=== PATIENT | female | born 1970 | race Caucasian/White ===

== ENCOUNTER 2022-07-23 16:11 | Emergency (ER) | payer SELFPAY ==
[2022-07-23] MEDS ORDERED: SUMAtriptan Succinate 6 MG/0.5 ML VIAL ONE (17:22)
== END 2022-07-23 17:28 | disposition left against medical advice (07) ==
LOC: ERS 16:11
DX: Z53.29 Procedure and treatment not carried out because of patient's decision for other reasons (principal)
CPT/HCPCS: J3030

== ENCOUNTER 2022-09-05 13:12 | Inpatient (IN) | payer OTHER, SELFPAY ==
[~2022-09-05 13:12] MED LIST: Iopamidol-370 76% 500 ML MDV (1 ML CHARGE) ONE
[2022-09-05] MEDS ORDERED: Refresh Lacri-lube Opth Oint 7 GM TUBE FS SCH (19:15)
[2022-09-05] MEDS ORDERED: SODIUM CHLORIDE 0.9% IVPB SCH (19:30)
[2022-09-05] MEDS ORDERED: HYDROCORTISONE SOD SUCC IVPB SCH (19:30)
[2022-09-05 20:35] LABS: Hemoglobin 7.4 g/dL (12.0-16.0); Mean Corpuscular Hemoglobin 29.4 pg (27.0-31.0); Mean Corpuscular Volume 79.4 fl (78.0-98.0); Mean Platelet Volume 11.1 fL (7.4-10.4); RBC Distribution Width 18.5 % (11.5-14.5); Red Blood Cell (RBC) Count 2.52 mill/uL (4.20-5.40); White Blood Cell (WBC) Count 8.9 10x3/uL (4.8-10.8)
[2022-09-05 20:37] LABS: Delete Auto Diff?? YES; Manual Diff?? YES; Platelet Count 55 10x3/uL (130-400)
[2022-09-05 20:44] LABS: Hemoglobin A1c 5.7 % (4.0-6.0)
[2022-09-05 20:47] LABS: INR-International Normal Ratio 1.2; Prothrombin Time 15.6 sec (12.0-14.7)
[2022-09-05 20:48] LABS: PTT 34.8 sec (22.9-36.1)
[2022-09-05] MEDS: Phenylephrine 40 MG/NS 250 ML 40 MG in Premix Bag 1 BAG IVPB SCH (20:48)
[2022-09-05 20:54] LABS: ALT (SGPT) 90 U/L (8-55); AST (SGOT) 193 U/L (5-34); Albumin 2.3 g/dL (3.5-5.0); Alkaline Phosphatase 49 U/L (40-110); Anion Gap 10 mmol/L (10-20); BUN (Urea Nitrogen) 24 mg/dL (9.8-20.1); Calc. Creatinine Clearance 0 mL/min (70-130); Calcium 7.9 mg/dL (7.8-10.44); Carbon Dioxide 25 mmol/L (22-29); Chloride 111 mmol/L (98-107); Estimated GFR 34; Globulin 1.6 g/dL (2.4-3.5); Glucose 124 mg/dL (70-105); Magnesium 1.2 mg/dL (1.6-2.6); Phosphorus 3.2 mg/dL (2.3-4.7); Protein, Total 3.9 g/dL (6.0-8.3); Sodium 143 mmol/L (136-145)
[2022-09-05 21:07] LABS: Bilirubin Negative (Negative); Blood, Urine 2+ (Negative); Clarity Clear (Clear); Glucose, Urine (Dipstick) Normal (Negative); Ketone, Urine Negative (Negative); Leukocyte Negative Leu/uL (Negative); Nitrite Negative (Negative); Protein, Urine (Dipstick) 20 mg/dL (Neg-Trace); RBC/HPF 0-3 HPF (0-3); Renal Epithelial 0-3 HPF (None Seen); Specific Gravity, Urine 1.026 (1.002-1.036); Squamous Epithelial 0-3 HPF (0-3); Urobilinogen Normal mg/dL (Less than 2)
[2022-09-05 21:09] LABS: Bacteria/HPF 1+ HPF (None Seen)
[2022-09-05 21:13] LABS: Band 43 % (5-11); CellaVision Operator ID LAB.CLH1; Eosinophils 3 % (0-10); Hypochromia SLIGHT = 6-15 cells HPF (0-5); Large Platelets 6.7 % (0-5); Lymphocytes 16 % (21-51); Neutrophil 37 % (42-75); Nucleated RBC (Manual Ct) 1 % (0); Platelet Adequacy Comment Platelets Decreased; Polychromasia SLIGHT = 2-3 cells HPF (0-2); Reactive Lymphocytes 1 % (0-10); Target Cells SLIGHT = 2-5 cells HPF (0-1); Total Cell Count 104
[2022-09-05] MEDS ORDERED: Magnesium 2 GM/50 ML(in water) 2 GM in Premix Bag 1 BAG IVPB SCH (23:00)
[2022-09-05] MEDS ORDERED: Potassium Chloride 40 MEQ in Premix Bag 1 BAG IVPB SCH (23:00)
[2022-09-05] MEDS ORDERED: Albumin 25% 25 GM/100 ML BOT IVPB SCH (23:30)
[2022-09-06] MEDS ORDERED: Electrolyte Replacement Protocol FS PRN (00:30)
[2022-09-06 00:36] LABS: Actual Bicarbonate (HCO3a) 27.5 mEq/L (22-28); Base Excess (BEa) 3.4 mEq/L (-2.0 to +3.0); CO2 Tension 39.5 mmHg (35.0-45.0); Calcium, Ionized (arterial) 1.13 mmol/L (1.12-1.30); Carboxyhemoglobin (COHb) 0.3 gm% (0.0-3.0); Hematocrit-ABG 28 % (36.0-47.0); Hemoglobin (Hb) 9.4 g/dL (12.0-16.0); O2 Tension (PaO2), arterial 138.7 mmHg (80.0-100.0)
[2022-09-06 00:59] LABS: Puncture Site Arterial Line
[2022-09-06] MEDS ORDERED: Magnesium Sulfate In Water 4 GM in Premix Bag 1 BAG IVPB SCH (01:00)
[2022-09-06 01:02] LABS: ALV-art Gradient 524.925 mmHg (0-20)
[2022-09-06] MEDS: Ipratropium/Albuterol 3 ML NEB NEB SCH ×6 (03:12→22:21)
[2022-09-06] MEDS ORDERED: Hydrocortisone Sod Succ/PF 100 mg/2 ml Vial IVP SCH ×2 (04:00→12:00)
[2022-09-06] MEDS ORDERED: Furosemide 40 MG/4 ML VIAL SLOW IVP SCH (04:30)
[2022-09-06 06:24] VITALS: BMI 36.1
[2022-09-06] MEDS ORDERED: Albumin 25% 25 GM/100 ML BOT IVPB SCH (06:30)
[2022-09-06 06:45] LABS: Hemoglobin 7.6 g/dL (12.0-16.0); Mean Corpuscular Hemoglobin 29.6 pg (27.0-31.0); RBC Distribution Width 19.3 % (11.5-14.5); Red Blood Cell (RBC) Count 2.57 mill/uL (4.20-5.40); White Blood Cell (WBC) Count 15.8 10x3/uL (4.8-10.8)
[2022-09-06 06:51] LABS: Platelet Count 54 10x3/uL (130-400)
[2022-09-06 06:53] LABS: Delete Auto Diff?? YES; Manual Diff?? YES
[2022-09-06 06:54] LABS: Mean Corpuscular Volume 82.1 fl (78.0-98.0)
[2022-09-06 07:05] LABS: Lactic Acid 2.8 mmol/L (0.5-2.2)
[2022-09-06 07:08] LABS: INR-International Normal Ratio 1.1; Prothrombin Time 14.7 sec (12.0-14.7)
[2022-09-06 07:09] LABS: PTT 32.5 sec (22.9-36.1)
[2022-09-06 07:18] LABS: Bacteria/HPF 2+ HPF (None Seen); Bilirubin Negative (Negative); Blood, Urine 2+ (Negative); Clarity Clear (Clear); Glucose, Urine (Dipstick) Normal (Negative); Ketone, Urine Negative (Negative); Leukocyte Negative Leu/uL (Negative); Nitrite Negative (Negative); Protein, Urine (Dipstick) Negative (Neg-Trace); RBC/HPF 0-3 HPF (0-3); Specific Gravity, Urine 1.006 (1.002-1.036); Squamous Epithelial 0-3 HPF (0-3); Urobilinogen Normal mg/dL (Less than 2)
[2022-09-06 07:20] LABS: ALT (SGPT) 100 U/L (8-55); AST (SGOT) 193 U/L (5-34); Albumin 3.3 g/dL (3.5-5.0); Alkaline Phosphatase 58 U/L (40-110); Anion Gap 14 mmol/L (10-20); BUN (Urea Nitrogen) 24 mg/dL (9.8-20.1); Bilirubin, Total 1.3 mg/dL (0.2-1.2); Calc. Creatinine Clearance 60 mL/min (70-130); Calcium 8.8 mg/dL (7.8-10.44); Carbon Dioxide 24 mmol/L (22-29); Chloride 112 mmol/L (98-107); Estimated GFR 32; Glucose 199 mg/dL (70-105); Magnesium 1.9 mg/dL (1.6-2.6); Phosphorus 3.5 mg/dL (2.3-4.7); Protein, Total 5.3 g/dL (6.0-8.3); Sodium 147 mmol/L (136-145)
[2022-09-06 07:53] LABS: Actual Bicarbonate (HCO3a) 23.8 mEq/L (22-28); Base Excess (BEa) -1.3 mEq/L (-2.0 to +3.0); CO2 Tension 41.3 mmHg (35.0-45.0); Calcium, Ionized (arterial) 1.14 mmol/L (1.12-1.30); Carboxyhemoglobin (COHb) 0.3 gm% (0.0-3.0); Hematocrit-ABG 24 % (36.0-47.0); Hemoglobin (Hb) 8.1 g/dL (12.0-16.0); O2 Tension (PaO2), arterial 120.6 mmHg (80.0-100.0); pH, Arterial 7.378 (7.35-7.45)
[2022-09-06 07:55] LABS: ALV-art Gradient 540.775 mmHg (0-20); Potassium - ABG Lab 2.39 mmol/L (3.70-5.30); Puncture Site Arterial Line
[2022-09-06] MEDS ORDERED: Magnesium 2 GM/50 ML(in water) 2 GM in Premix Bag 1 BAG IVPB SCH (08:00)
[2022-09-06] MEDS: Potassium Chloride 20 MEQ in Premix Bag 1 BAG IVPB SCH ×5 (08:11→23:59)
[2022-09-06 08:40] LABS: Band 42 % (5-11); Large Platelets 7.5 % (0-5); Lymphocytes 5 % (21-51); Neutrophil 53 % (42-75); Platelet Adequacy Comment Platelets Decreased; Polychromasia SLIGHT = 2-3 cells HPF (0-2); Total Cell Count 120
[2022-09-06] MEDS: Phenylephrine 40 MG/NS 250 ML 40 MG in Premix Bag 1 BAG IVPB SCH (11:29)
[2022-09-06] MEDS ORDERED: Piperacillin/Tazobactam 3.375 GM in Sodium Chloride 0.9% 100 ML IVPB SCH (12:15)
[2022-09-06] MEDS: methylPREDNISolone Sod Succ 40 MG VIAL IVP SCH ×2 (12:32→20:34)
[2022-09-06] MEDS: Piperacillin/Tazobactam 3.375 GM in Sodium Chloride 0.9% 100 ML IVPB SCH ×2 (16:16→23:59)
[2022-09-06 17:02] LABS: Actual Bicarbonate (HCO3a) 27.7 mEq/L (22-28); Base Excess (BEa) 2.9 mEq/L (-2.0 to +3.0); CO2 Tension 43.7 mmHg (35.0-45.0); Calcium, Ionized (arterial) 1.16 mmol/L (1.12-1.30); Carboxyhemoglobin (COHb) 0.3 gm% (0.0-3.0); Hematocrit-ABG 22 % (36.0-47.0); Hemoglobin (Hb) 7.6 g/dL (12.0-16.0); O2 Tension (PaO2), arterial 283.2 mmHg (80.0-100.0)
[2022-09-06 17:03] LABS: ALV-art Gradient 375.175 mmHg (0-20); Puncture Site Arterial Line
[2022-09-06 18:37] LABS: Hemoglobin 7.2 g/dL (12.0-16.0); Mean Corpuscular HGB CONC 35.6 g/dL (32.0-36.0); Mean Corpuscular Hemoglobin 29.5 pg (27.0-31.0); Mean Corpuscular Volume 82.8 fl (78.0-98.0); RBC Distribution Width 19.9 % (11.5-14.5); Red Blood Cell (RBC) Count 2.44 mill/uL (4.20-5.40); White Blood Cell (WBC) Count 14.4 10x3/uL (4.8-10.8)
[2022-09-06 18:53] LABS: Lactic Acid 2.7 mmol/L (0.5-2.2)
[2022-09-06 18:56] LABS: Delete Auto Diff?? YES; Manual Diff?? YES; Platelet Count 38 10x3/uL (130-400)
[2022-09-06 19:04] LABS: INR-International Normal Ratio 1.2; PTT 29.7 sec (22.9-36.1); Prothrombin Time 15.4 sec (12.0-14.7)
[2022-09-06 19:07] LABS: ALT (SGPT) 90 U/L (8-55); AST (SGOT) 157 U/L (5-34); Albumin 3.8 g/dL (3.5-5.0); Alkaline Phosphatase 63 U/L (40-110); Anion Gap 15 mmol/L (10-20); BUN (Urea Nitrogen) 25 mg/dL (9.8-20.1); Bilirubin, Total 1.9 mg/dL (0.2-1.2); Calc. Creatinine Clearance 63 mL/min (70-130); Calcium 9.3 mg/dL (7.8-10.44); Carbon Dioxide 24 mmol/L (22-29); Chloride 118 mmol/L (98-107); Estimated GFR 34; Glucose 271 mg/dL (70-105); Magnesium 2.6 mg/dL (1.6-2.6); Potassium 2.2 mmol/L (3.5-5.1); Protein, Total 5.8 g/dL (6.0-8.3); Sodium 155 mmol/L (136-145)
[2022-09-06 19:24] LABS: Anisocytosis SLIGHT = 6-15 cells HPF (0-5); Band 31 % (5-11); Burr Cells SLIGHT = 2-5 cells HPF (0-1); CellaVision Operator ID LAB.KB; Lymphocytes 6 % (21-51); Macrocytosis SLIGHT = 6-15 cells HPF (0-5); Monocytes 1 % (0-10); Neutrophil 62 % (42-75); Platelet Adequacy Comment Significant decrease; Polychromasia MODERATE = 3-4 cells HPF (0-2); Target Cells SLIGHT = 2-5 cells HPF (0-1); Total Cell Count 103
[2022-09-06] MEDS ORDERED: Potassium Phosphate 15 MMOL in Sodium Chloride 0.9% 100 ML IVPB SCH (19:30)
[2022-09-06 21:14] LABS: Bilirubin Negative (Negative); Blood, Urine 3+ (Negative); Clarity Clear (Clear); Glucose, Urine (Dipstick) 70 mg/dL (Negative); Ketone, Urine Negative (Negative); Leukocyte Negative Leu/uL (Negative); Nitrite Negative (Negative); Protein, Urine (Dipstick) 20 mg/dL (Neg-Trace); RBC/HPF None Seen HPF (0-3); Specific Gravity, Urine 1.007 (1.002-1.036); Squamous Epithelial 0-3 HPF (0-3); Urobilinogen Normal mg/dL (Less than 2); WBC/HPF 0-3 HPF (0-3)
[2022-09-06 21:15] LABS: Bacteria/HPF 1+ HPF (None Seen)
[2022-09-06] MEDS ORDERED: Dextrose 5% in Water 1,000 ML IV PRN (21:30)
[2022-09-06] MEDS ORDERED: Glucagon 1 MG/ML KIT IM PRN (21:30)
[2022-09-06] MEDS ORDERED: Dextrose 50% Abboject 50 ML SYRINGE IVP PRN (21:30)
[2022-09-06] MEDS ORDERED: HUMULIN R 100 UNITS in Sodium Chloride 0.9% 100 ML IVPB SCH (21:30)
[2022-09-06 22:01] LABS: Actual Bicarbonate (HCO3a) 24.4 mEq/L (22-28); Base Excess (BEa) 0.7 mEq/L (-2.0 to +3.0); CO2 Tension 34.6 mmHg (35.0-45.0); Calcium, Ionized (arterial) 1.19 mmol/L (1.12-1.30); Carboxyhemoglobin (COHb) 0.7 gm% (0.0-3.0); Hematocrit-ABG 21 % (36.0-47.0); Hemoglobin (Hb) 7.3 g/dL (12.0-16.0); O2 Tension (PaO2), arterial 354.6 mmHg (80.0-100.0); pH, Arterial 7.466 (7.35-7.45)
[2022-09-06 22:02] LABS: Puncture Site Arterial Line
[2022-09-07 00:41] VITALS: TEMP 97.4
[2022-09-07] MEDS: Ipratropium/Albuterol 3 ML NEB NEB SCH ×3 (01:53→10:40)
[2022-09-07] MEDS: Potassium Chloride 20 MEQ in Premix Bag 1 BAG IVPB SCH (02:36)
[2022-09-07 06:00] LABS: #Monocytes 0.6 thou/uL (0.11-0.59); #Neutrophils 12.9 thou/uL (1.40-6.50); %Basophils 0.1 % (0.0-1.0); %Lymphocytes 4.1 % (21.0-51.0); %Monocytes 4.1 % (0.0-10.0); %Neutrophils 90.7 % (42.0-75.0); Hemoglobin 7.2 g/dL (12.0-16.0); Mean Corpuscular HGB CONC 35.5 g/dL (32.0-36.0); Mean Corpuscular Hemoglobin 29.6 pg (27.0-31.0); Mean Corpuscular Volume 83.5 fl (78.0-98.0); RBC Distribution Width 20.1 % (11.5-14.5); Red Blood Cell (RBC) Count 2.43 mill/uL (4.20-5.40); White Blood Cell (WBC) Count 14.2 10x3/uL (4.8-10.8)
[2022-09-07 06:05] LABS: Actual Bicarbonate (HCO3a) 24.7 mEq/L (22-28); Base Excess (BEa) 0.5 mEq/L (-2.0 to +3.0); CO2 Tension 37.4 mmHg (35.0-45.0); Calcium, Ionized (arterial) 1.14 mmol/L (1.12-1.30); Carboxyhemoglobin (COHb) 0.8 gm% (0.0-3.0); Hematocrit-ABG 21 % (36.0-47.0); Hemoglobin (Hb) 7.1 g/dL (12.0-16.0); O2 Tension (PaO2), arterial 386.1 mmHg (80.0-100.0); pH, Arterial 7.437 (7.35-7.45)
[2022-09-07 06:21] LABS: Lactic Acid 0.9 mmol/L (0.5-2.2)
[2022-09-07] MEDS: methylPREDNISolone Sod Succ 40 MG VIAL IVP SCH (06:24)
[2022-09-07 06:35] LABS: ALT (SGPT) 86 U/L (8-55); AST (SGOT) 125 U/L (5-34); Albumin 3.5 g/dL (3.5-5.0); Alkaline Phosphatase 72 U/L (40-110); Anion Gap 12 mmol/L (10-20); BUN (Urea Nitrogen) 24 mg/dL (9.8-20.1); Bilirubin, Total 1.8 mg/dL (0.2-1.2); Calc. Creatinine Clearance 58 mL/min (70-130); Calcium 9.1 mg/dL (7.8-10.44); Carbon Dioxide 24 mmol/L (22-29); Chloride 119 mmol/L (98-107); Estimated GFR 40; Globulin 2.3 g/dL (2.4-3.5); Glucose 200 mg/dL (70-105); Magnesium 2.6 mg/dL (1.6-2.6); Phosphorus 3.7 mg/dL (2.3-4.7); Potassium 2.3 mmol/L (3.5-5.1); Protein, Total 5.8 g/dL (6.0-8.3); Sodium 153 mmol/L (136-145)
[2022-09-07 06:39] LABS: INR-International Normal Ratio 1.1
[2022-09-07 06:40] LABS: PTT 30.6 sec (22.9-36.1)
[2022-09-07 06:57] LABS: Platelet Count 24 10x3/uL (130-400)
[2022-09-07 06:58] LABS: Manual Diff?? YES
[2022-09-07] MEDS ORDERED: Potassium Phosphate 30 MMOL in Sodium Chloride 0.9% 250 ML 250 ML IVPB SCH (07:00)
[2022-09-07 07:29] LABS: Bacteria/HPF 3+ HPF (None Seen); Bilirubin Negative (Negative); Blood, Urine 3+ (Negative); Clarity Turbid (Clear); Glucose, Urine (Dipstick) 30 mg/dL (Negative); Ketone, Urine Negative (Negative); Leukocyte 25 Leu/uL (Negative); Nitrite Negative (Negative); Protein, Urine (Dipstick) 30 mg/dL (Neg-Trace); RBC/HPF 0-3 HPF (0-3); Specific Gravity, Urine 1.011 (1.002-1.036); Urobilinogen Normal mg/dL (Less than 2)
[2022-09-07 07:31] LABS: Puncture Site ALINE
[2022-09-07 07:31] LABS: Band 26 % (5-11); Burr Cells SLIGHT = 2-5 cells HPF (0-1); CellaVision Operator ID LAB.GE; Large Platelets 8.7 % (0-5); Lymphocytes 2 % (21-51); Macrocytosis SLIGHT = 6-15 cells HPF (0-5); Metamyelocyte 2 % (0-0); Monocytes 3 % (0-10); Neutrophil 67 % (42-75); Platelet Adequacy Comment Significant decrease; Polychromasia MODERATE = 3-4 cells HPF (0-2); Smudge Cells 8.7 %; Total Cell Count 103
[2022-09-07] MEDS: Piperacillin/Tazobactam 3.375 GM in Sodium Chloride 0.9% 100 ML IVPB SCH (07:41)
[2022-09-07] MEDS: Phenylephrine 40 MG/NS 250 ML 40 MG in Premix Bag 1 BAG IVPB SCH (07:48)
[2022-09-07 10:43] VITALS: BP 102/56
[2022-09-10 14:20] LABS: Potassium - ABG Lab 2.31 mmol/L (3.70-5.30)
== END 2022-09-07 11:57 | disposition critical access hospital (66) | DRG 951 ==
LOC: CCU 13:12 → SDC 13:12 → CCU 13:12 → SDC 17:24 → EDSTATUS 20:40
PROVIDERS: ADMIT Surgery; ATTEND Surgery
PROC: 4A033R1 Measurement of Arterial Saturation, Peripheral, Percutaneous Approach (ICD-10-PCS; principal; 2022-09-06)
DX: Z52.89 Donor of other specified organs or tissues (principal); Z88.0 Allergy status to penicillin
CPT/HCPCS: 36415; 36416; 36430; 71045; 71270; 74178; 80053; 81003; 81015; 82248; 82805; 83036; 83605; 83735; 84100; 85025; 85610; 85730; 86850; 86900; 86901; 87205; 94002; 94003; 94640; J1720; J1815; J1940; J2543; J2920; J3475; J3480; J3490; J7050; J7620; P9047; Q9967